=== PATIENT | female | born 1975 ===

== ENCOUNTER 2023-06-21 05:50 | Day surgery (SDC) | payer OTHER ==
[2023-06-19 10:30] LABS: HEMATOCRIT 34.5 % (36.0-45.00); HEMOGLOBIN 11.4 g/dL (12.0-15.00); MEAN CELL VOLUME 84.5 fL (80.00-100.00); MEAN CORPUSCULAR HGB CONC 33.1 g/dl (32.0-36.0); PLATELET COUNT 213 K/uL (150-450); RED BLOOD COUNT 4.08 M/uL (4.00-6.00); RED CELL DISTRIBUTION WIDTH 15.3 % (11.5-14.5)
[2023-06-19 10:32] LABS: PH,URINE 5.5 (5.0-8.0); URINE APPEARANCE Cloudy; URINE BILIRRUBIN Negative (NEGATIVE); URINE BLOOD Negative; URINE COLOR Yellow; URINE GLUCOSE Negative (NEGATIVE); URINE LEUKOCYTE Small; URINE NITRATE Negative; URINE PROTEIN Trace (NEGATIVE); URINE UROBILINOGEN 0.2 E.U./dl
[2023-06-19 10:37] LABS: URINE BACTERIA 3347.5 uL (0.0-1933); URINE RBC 18.2 uL (0.0-20.8); URINE WBC 351.5 uL (0.0-23.2)
[2023-06-19 11:00] LABS: INR 1.03; PARTIAL THROMBOPLASTIN TIME 27.6 SECONDS (22.0-34.0); PROTHROMBIN TIME 10.8 SECONDS (9.0-11.5)
[2023-06-19 11:38] LABS: POTASSIUM 4.2 mEq/L (3.5-5.1)
[2023-06-19 11:53] LABS: ALBUMIN 3.6 gm/dL (3.4-5.0); CALCIUM 9.3 mg/dL (8.5-10.1); CREATININE SERUM 0.73 mg/dL (0.55-1.02); GFR 85.45; TOTAL PROTEIN 7.6 gm/dL (6.4-8.2)
[2023-06-19 11:54] LABS: BILIRUBIN TOTAL 0.88 mg/dL (0.3-1.2)
[~2023-06-21 05:50] MED LIST: GLUMETZA500 MG PO
[2023-06-21] MEDS ORDERED: CEFOXITIN SODIUM 2,000 MG VIAL IV ONE ×2 (10:43→11:30)
[2023-06-21] MEDS ORDERED: POVIDONE-IODINE 118 ML BOTT TOP ONE ×2 (10:56→11:30)
[2023-06-21] MEDS ORDERED: KETOROLAC TROMETHAMINE 30 MG VIAL IU ONE (11:00)
== END 2023-06-21 18:20 | disposition home or self-care (01) ==
LOC: CIR.AMB 05:50
PROVIDERS: ATTEND Obstetrics & Gynecology Gynecologic Oncology
DX: N87.1 Moderate cervical dysplasia (principal); N88.8 Other specified noninflammatory disorders of cervix uteri; Z88.6 Allergy status to analgesic agent; Z20.822 Contact with and (suspected) exposure to COVID-19